=== PATIENT | female | born 1925 | race Caucasian/White ===

== ENCOUNTER 2016-07-24 13:50 | Inpatient (IN) | payer MEDICARE ==
--- NOTE | ~2016-07-24 | DS ---
Unit #: [id number] #: [id number] Patient: JULIA ARREAGA [id number] [address] [place], [place] [address] [id number] I MR#: [id number] NAME: JULIA ARREAGA. ROOM: 570 Age: 89 Sex: F Admission Date: 07/24/2016 : 1925 Discharge Date: 07/30/2016 Attending Physician: Clifton Grady M.D. Primary Care Physician: Byron Newell M.D. DISCHARGE SUMMARY DISCHARGE DIAGNOSES 1. New onset atrial flutter with rapid ventricular rate of unknown duration. 2. Acute on chronic diastolic heart failure. 3. Left ventricular ejection fraction 60% to 65%. 4. Left lower extremity cellulitis. 5. Obesity. 6. Dementia. 7. Hyperlipidemia. DISCHARGE MEDICATIONS 1. Amiodarone 200 mg daily. 2. Tylenol 650 q.4 p.r.n. pain. 3. Clobetasol 15 gram cream topically with equal amount of Bactroban 22 gram topical b.i.d. from ankles to knees. 4. Coumadin 5 mg Sunday, Sunday, Sunday, , Sunday with goal INR of 2 to 3. Hold if INR is greater than 3. 5. Risperdal 0.25 mg at bedtime. 6. Metoprolol tartrate 12.5 mg b.i.d. 7. Stool softener of choice daily p.r.n. constipation. 8. Aspirin 81 mg daily. 9. Kefzol 500 mg t.i.d. for 5 days. HISTORY AND HOSPITAL COURSE The patient is an 89-year-old white female, previously known to us for syncope in March of 2015, for which she refused a stress test. Echocardiogram at that time showed ejection fraction of 60% to 65% with mild TR. She also had acute delirium with underlying dementia and vitamin B12 deficiency. She does not follow up with a ticket seller and has not had any ischemic workup in the past. She is a very poor historian due to her dementia. She was noted to be in atrial fibrillation with rapid ventricular response. The patient was started on rate lowering agents with beta-blockers, and diltiazem drip was weaned off due to hypotension. The patient was started on Lovenox for anticoagulation and then transitioned to "Cardizem" for a [id number] score of 3. It was noted that the patient had bilateral lower extremity redness and tenderness and was started on Ancef IV q.8 hours. The patient was also seen by the hospitalists for medical management. Her heart rate has been controlled. She has been somewhat weak, and she is going to go to rehab today. DISCHARGE INSTRUCTIONS 1. The patient is to have a PT-INR done on Sunday with goal INR of 2-3. 2. She is to follow up with her primary care doctor after rehab. Unit #: [id number] #: [id number] Patient: JULIA ARREAGA 3. She is to follow up with Dr. Fallon in 4-6 weeks and to call [phone] for appointment. 4. Her Keflex is to be 500 mg t.i.d. for 5 more days. Dictated by... Perlita Grady APRN for Christine Painter/payton TD: 07/30/2016 15:03 JOB #: [id number] DISCHARGE SUMMARY Page 1 of 1 X X DISCHARGE SUMMARY
--- NOTE | ~2016-07-24 | EKG ---
PATIENT: JULIA ARREAGA UNIT #: [id number] Ventricular Rate: 75 BPM Atrial Rate: 300 BPM QRS Duration: 82 ms Q-T Interval: 356 ms QTC Calculation(Bezet): 397 ms P [place]: 105 degrees Calculated R [place]: 2 degrees Calculated T [place]: -16 degrees Diagnosis Line: Atrial flutter with variable A-V block Diagnosis Line: Nonspecific ST and T wave abnormality Diagnosis Line: Abnormal ECG Diagnosis Line: When compared with ECG of 24-JUL-2016 12:22, Diagnosis Line: Vent. rate has decreased BY 49 BPM Diagnosis Line: Confirmed by RG KELLOGG MD ([id number]) on 07/25/2016 Diagnosis Line: 10:33:05 PM INTERPRETING MD: BESS LOCO
--- NOTE | ~2016-07-24 | HP ---
Unit #: [id number] #: [id number] Patient: JULIA ARREAGA [id number] [address] [place], [place] [address] [id number] I MR#: [id number] NAME: JULIA ARREAGA. ROOM: 570 Age: 89 Sex: F Admission Date: 07/24/2016 : 1925 Attending Physician: Clifton Grady M.D. Primary Care Physician: Byron Newell M.D. HISTORY AND PHYSICAL HISTORY OF PRESENT ILLNESS This is an 89-year-old white female previously seen by our group in March 2015 for possible syncope. She refused a Lexiscan Cardiolite stress test during that time. A 2D echocardiogram was completed and revealed a left ventricular ejection fraction of 60% to 65% with mild tricuspid regurgitation. She was found to have hyperlipidemia, as well as acute delirium with underlying dementia and vitamin B12 deficiency. The patient does not follow actively with a nursing officer. There are no reports of stress test or cardiac catheterization. She is a poor historian due to underlying dementia. Information has been obtained from her, as well as her daughter, Carine. She presented to the emergency department with complaints of swelling in her lower extremities and redness on the left lower extremity. There are no reports of fever or chills. She has had a recent headache but no loss of vision, dizziness, or syncope. There are no reports of palpitations or chest pain. She denies any PND or orthopnea. She does live in assisted living and uses a walker to ambulate. In the emergency department, her temperature was 98, pulse 150, respirations 16, blood pressure 116/53, and O2 saturation 96% on room air. Initial EKG revealed atrial flutter with a rapid ventricular response. She was started on a Cardizem bolus, followed by a Cardizem drip. Cardiology was asked to evaluate the patient due to atrial flutter. According to the patient and her daughter, she has no history of atrial arrhythmias. She has never been told that she needed long-term anticoagulation. She is on no home medications. PAST MEDICAL HISTORY 1. Previous admission to [facility] March 2015 for possible syncope, acute delirium with underlying dementia, and vitamin B12 deficiency. 2. Refused Lexiscan Cardiolite stress test in March 2015. 3. A 2D echocardiogram on April 24, 2015, revealed a left ventricular ejection fraction of 60% to 65% and mild tricuspid regurgitation. Right ventricular systolic pressure was normal. 4. Hyperlipidemia. 5. Nonsmoker. PAST SURGICAL HISTORY 1. Tonsillectomy. 2. Appendectomy. 3. Left knee replacement. Unit #: [id number] #: [id number] Patient: JULIA ARREAGA 4. Right hip replacement. HOME MEDICATIONS None. ALLERGIES No known drug allergies. SOCIAL HISTORY The patient lives in assisted living. She is a nonsmoker. There are no reports of alcohol or illicit drug use. She ambulates with a walker. She reports that she recently fell on her knee while trying to get out of the car. She denies any other falls. FAMILY HISTORY Noncontributory due to age. REVIEW OF SYSTEMS A 10-point review of systems is negative except for details noted above in History of Present Illness. PHYSICAL EXAMINATION VITAL SIGNS: Temperature 98, pulse 139, and blood pressure 106/91. CONSTITUTIONAL: This is an 89-year-old white female in no acute distress. SKIN: Warm and dry. NECK: Supple. No jugular vein distention. No hepatojugular reflux. Normal carotid upstrokes. No carotid bruits auscultated. HEART: S1 and S2. Tachycardic. No murmurs, rubs, or gallops. LUNGS: Bilateral breath sounds have good air entry throughout all lung shay. Respirations even and nonlabored. No rales, rhonchi, or wheezes. ABDOMEN: Obese, soft, nontender, and nondistended. Positive bowel sounds auscultated x4 quadrants. No ascites noted. EXTREMITIES: Bilateral lower extremities have 2+ pitting edema. Left lower extremity red and weeping. Abrasion noted on the left knee. DP and PT pulses 1+. Capillary refill less than 3 seconds. DIAGNOSTIC STUDIES LABORATORY: White blood cell count 8.8, hemoglobin 12.6, hematocrit 38, and platelets 268,000. Sodium 141, potassium 3.5, chloride 106, CO2 of 24, BUN 19, creatinine 1.1, glucose 85, AST 19, ALT 13, and alkaline phosphatase 83. BNP 219. INR 0.9. Troponin 0.05 and 0.05. Blood cultures pending. IMAGING: Chest x-ray reveals mild chronic scarring in the left lung base. CARDIOLOGY: EKG reveals atrial flutter with a ventricular rate of 124 beats per minute, nonspecific ST and T wave changes, and QTc of 428 msec. IMPRESSION 1. Atrial flutter with rapid ventricular response, age undetermined. 2. Mild volume overload. 3. Left ventricular ejection fraction of 60% to 65%. 4. Borderline hypotension while on diltiazem drip. 5. Left lower extremity cellulitis. 6. Dementia. 7. Hyperlipidemia. PLAN Unit #: [id number] #: [id number] Patient: JULIA ARREAGA 1. The patient presented to the hospital with complaints of swelling in the legs with redness. Initial EKG revealed atrial flutter with a rapid ventricular response. Cardiology was consulted for further management. 2. Patient's diltiazem drip will be discontinued due to borderline hypotension. 3. She will be started on digoxin as renal function is normal. Will initiate low-dose metoprolol at 12.5 mg p.o. b.i.d. with parameters. 4. The patient has cellulitis of the left lower extremity. She will be started on Ancef IV q.8 hours. 5. Will consult the wound care nurse for further management, as well as the hospitalist. 6. Patient has some mild overload with bilateral lower extremity edema. She will be given one dose of IV Lasix. 7. The patient has a CHADS2-VASc score of 3 due to gender and age. She will be started on Lovenox for now. Will need to discuss if she is a candidate for long-term anticoagulation as she is older in age and did suffer a recent fall. 8. The patient had a recent echocardiogram in March 2015 which revealed a normal EF and mild tricuspid regurgitation. There is no need to repeat the (1) at this time. 9. The patient is a Full Code status but will provide Living Will papers. 1. Dictated by Khushi Taylor APRN for Christine Hawthorne TD: 07/25/2016 20:20 JOB #: [id number] HISTORY AND PHYSICAL Page 1 of 1 X X HISTORY AND PHYSICAL
--- NOTE | ~2016-07-24 | CR72 ---
[facility] A Service of [facility] RADIOLOGY TEXT RESULTS PATIENT: JULIA ARREAGA LOCATION: [facility] : [birth year] UNIT #: [id number] AGE: [address]: Clifton Grady MD SEX: F ORDER DR: [id number] [facility] [address] [place], [place] [address] [id number] E MR#: [id number] Acc #: [id number] NAME: JULIA ARREAGA. : 1925 SEX: F STUDY DATE/TIME: 07/24/2016 12:37 UNIT: [facility] ROOM: STUDY DESCRIPTION: CR Chest Single View Portable Attending Physician: Brett Byrne M.D. Ordering Physician: Brett Byrne M.D. Primary Care Physician: Byron Newell M.D. MEDICAL IMAGING REPORT This report is preliminary unless electronic signature is present EXAM Portable chest. INDICATION Shortness of breath. Bilateral lower extremity edema and swelling for 2 weeks. FINDINGS Comparison made to a prior study from April 24, 2015. Heart size is within normal limits for portable technique. No acute infiltrates are identified. There is no pneumothorax or pleural effusion. I do think the patient has some mild chronic scarring at the left lung base. Dictated by... Lisa Stockton M.D. THIS IS AN ELECTRONICALLY VERIFIED REPORT Lisa Stockton M.D. at 07/24/2016 4:45 PM AFF/tmw TD: 07/24/2016 14:53 JOB #: [id number] MEDICAL IMAGING REPORT Page 1 of 1 COPY
--- NOTE | ~2016-07-24 | US84 ---
[id number] [facility]. [facility] [address] [place], [place] [address] [id number] I MR#: [id number] Acc #: [id number] NAME: JULIA ARREAGA : 1925 SEX: F STUDY DATE/TIME: 07/25/2016 10:23 UNIT: [facility] ROOM: 570 STUDY DESCRIPTION: US LE Veins Complete Jorge Stdy Attending Physician: Clifton Grady M.D. Ordering Physician: Theresa Monteiro M.D. Primary Care Physician: Byron Newell M.D. MEDICAL IMAGING REPORT This report is preliminary unless electronic signature is present EXAM Bilateral lower extremity venous duplex, 07/25/2016. HISTORY Bilateral lower extremity redness and swelling for 1 week, left greater than right. Evaluate for deep venous thrombosis. FINDINGS TECHNIQUE Venous ultrasound examination of both lower extremities was performed using grayscale, spectral Doppler and color flow Doppler imaging. FINDINGS The examination is negative. There is no evidence of deep venous thrombus from the groin to the lower calf bilaterally. Visualized greater saphenous veins are also patent. IMPRESSION Negative examination. No evidence of lower extremity deep venous thrombosis. Dictated by... Julio Salgado M.D. THIS IS AN ELECTRONICALLY VERIFIED REPORT Julio Salgado M.D. at 07/26/2016 8:20 AM MARVA/ursula TD: 07/25/2016 13:11 JOB #: [id number] MEDICAL IMAGING REPORT Page 1 of 1 COPY
--- NOTE | ~2016-07-24 | EKG ---
PATIENT: JULIA ARREAGA UNIT #: [id number] Ventricular Rate: 124 BPM Atrial Rate: 300 BPM QRS Duration: 80 ms Q-T Interval: 298 ms QTC Calculation(Bezet): 428 ms Calculated R [place]: -3 degrees Calculated T [place]: -9 degrees Diagnosis Line: Atrial flutter with variable A-V block Diagnosis Line: Nonspecific ST and T wave abnormality Diagnosis Line: Abnormal ECG Diagnosis Line: When compared with ECG of 24-APR-2015 06:02, Diagnosis Line: Atrial flutter has replaced Sinus rhythm Diagnosis Line: Vent. rate has increased BY 67 BPM Diagnosis Line: Nonspecific T wave abnormality now evident in Diagnosis Line: Lateral leads Diagnosis Line: Confirmed by NEGAR GUTIERREZ MD ([id number]) on 07/24/2016 Diagnosis Line: 11:06:13 PM INTERPRETING MD: MATT LOCO
--- NOTE | ~2016-07-24 | EKG ---
PATIENT: JULIA ARREAGA UNIT #: [id number] Ventricular Rate: 73 BPM Atrial Rate: 73 BPM P-R Interval: 222 ms QRS Duration: 86 ms Q-T Interval: 412 ms QTC Calculation(Bezet): 453 ms P [place]: 84 degrees Calculated R [place]: 10 degrees Calculated T [place]: 38 degrees Diagnosis Line: Sinus rhythm with 1st degree A-V block Diagnosis Line: Low voltage QRS Diagnosis Line: Borderline ECG Diagnosis Line: When compared with ECG of 25-JUL-2016 08:18, Diagnosis Line: Sinus rhythm has replaced Atrial flutter Diagnosis Line: Nonspecific T wave abnormality, improved in Diagnosis Line: Anterior leads Diagnosis Line: Confirmed by RAGHAV BARNETT MD ([id number]) on Diagnosis Line: 07/30/2016 2:07:16 PM INTERPRETING MD: KATHY
--- NOTE | ~2016-07-24 | CO ---
Unit #: [id number] #: [id number] Patient: JULIA ARREAGA [id number] [facility] [address] [place], [place] [address] [id number] I MR#: [id number] NAME: JULIA ARREAGA. ROOM: 570 Age: 89 Sex: F Admission Date: 07/24/2016 : 1925 Attending Physician: Clifton Grady M.D. Primary Care Physician: Byron Newell M.D. Consultation Date: 07/24/2016 CONSULTATION REPORT REFERRING PHYSICIAN [facility] Cardiology. HISTORY This pleasant 89-year-old female with B12 deficiency, dementia, hyperlipidemia, was admitted to the cardiology service for new onset atrial fibrillation. Unfortunately patient is a very poor historian and the family is not present. She was brought to this emergency department for palpitations and bilateral lower extremity edema. She was found in the ER to have new onset afib with RVR. She was started on a Cardizem drip, and seen by Dr. Fallon who has since transitioned the patient to low dose Lopressor, and Pradaxa. We were asked to see for medical management. Patient denies any issues; in fact, she is upset about being in the hospital and does not really know where she is. She does have an abrasion over her left knee and does admit to falling on her left knee recently. Her exam is notable for bilateral lower extremity erythema, more so on the left than the right, and lower extremity edema, left more so than the right. PAST MEDICAL HISTORY 1. Admission 03/2015 for syncope, chest pain, delirium. The patient was found to have significant B12 deficiency. Of note her TSH was elevated. I believe that she had refused stress test at that time. 2. Dementia. 3. Hyperlipidemia. 4. B12 deficiency. 5. Appendectomy. 6. Left knee surgery. 7. Right hip replacement. 8. Tonsillectomy. 9. Left cataract extraction. ALLERGIES No known drug allergies. HOME MEDICATIONS None. FAMILY HISTORY Family history is noncontributory given the patient's age. Unit #: [id number] #: [id number] Patient: JULIA ARREAGA SOCIAL HISTORY The patient states that she lives with family although per the ER sheet she may be living at [facility]. She is a lifelong nonsmoker, does not drink alcohol. REVIEW OF SYSTEMS Impossible to obtain due to patient's dementia. PHYSICAL EXAMINATION GENERAL: Pleasantly confused, 89-year-old moderately obese female who currently is in no acute distress. VITAL SIGNS: Temperature 98. Pulse was initially 150 and now is 82. Respirations 16. Blood pressure 116/53. O2 saturation 96% on room air. HEENT: Eyes PERRLA. Extraocular muscles are intact. Status post left cataract extraction. Pharynx is benign. NECK: Supple, without adenopathy or thyromegaly. CHEST: Clear. CARDIAC: Normal S1 and S2, without definite murmur. ABDOMEN: Bowel sounds are present. No hepatosplenomegaly, tenderness or masses. EXTREMITIES: Notable for bilateral lower extremity edema left more so than the right. Pedal pulses are present although somewhat diminished. There is erythema over the distal lower extremities, left more so than right. Negative Homans sign. Abrasion over the left knee. NEUROLOGIC EXAM: Patient is oriented to person only. She is quite tangential and confused. Her cranial nerves are intact. She has equal strength throughout. DIAGNOSTIC STUDIES LABORATORY: Hematocrit is 38, normal white count, platelet count and MCV. Coags are normal. SMA-12 normal. BNP 219. Cardiac markers are negative. IMAGING: Chest x-ray no acute disease. Some scarring noted at the left base. CARDIOVASCULAR: EKG showed afib, RVR, rate about 125. ASSESSMENT 1. New diagnosis of atrial fibrillation with rapid ventricular response. Apparently patient did have an echocardiogram in 2014 showing normal ejection fraction with mild tricuspid regurgitation. 2. Dementia. 3. Venostasis dermatitis of the lower extremities with likely superimposed left distal leg cellulitis. 4. Abrasion over the left knee. 5. B12 deficiency. PLANS 1. Agree with IV Ancef. Will add Bactroban ointment to her left knee, check venous Dopplers of the legs. 2. Start IM B12 injections. 3. Check urinalysis. 4. Thyroid function tests have been ordered by Cardiology. Thank you very much for this consult. Will follow with you. Unit #: [id number] #: [id number] Patient: JULIA ARREAGA Dictated by... Theresa Monteiro M.D. AML/cf TD: 07/24/2016 21:37 JOB #: [id number] CC: Shravan Fallon M.D. CONSULTATION REPORT Page 1 of 1 X Theresa Monteiro MD CONSULTATION REPORT
[2016-07-24 12:53] LABS: POC - CKMB 2.6 ng/mL (0.0-7.9); POC - TROPONIN <0.05 ng/mL (<=0.05)
[2016-07-24 12:59] LABS: BASOPHIL% 0.5 % (0-2.5); DIFF IND NO; EOSINOPHIL# 0.2 X10e3 (0-0.7); EOSINOPHIL% 2.3 % (0.0-7.0); HEMOGLOBIN 12.6 gm/dL (12.0-16.0); LYMPHOCYTE# 2.1 X10e3 (1.0-3.5); LYMPHOCYTE% 23.6 % (17.0-45.0); MEAN CELL VOLUME 89.8 FL (83-96); MEAN CORPUSCULAR HEMOGLOBIN 29.7 PG (28-34); MEAN PLATELET VOLUME 8.1 FL (6.5-11.5); MONOCYTE# 0.9 X10e3 (0-1.0); MONOCYTE% 10.6 % (3.0-12.0); NEUTROPHIL# 5.6 X10e3 (1.5-7.1); PLATELET COUNT 268 X10e3 (140-420); RED BLOOD COUNT 4.23 X10e (3.90-5.30); RED CELL DISTRIBUTION WIDTH 13.7 % (11.0-15.5); WHITE BLOOD COUNT 8.8 X10e3 (4.0-10.5)
[2016-07-24 13:14] LABS: INR 0.9; PARTIAL THROMBOPLASTIN TIME 26.8 SECONDS (23.5-31.3)
[2016-07-24 13:46] LABS: BILIRUBIN, DIRECT 0.1 mg/dL (0.0-0.2); BILIRUBIN,INDIRECT 0.6 mg/dL (0.0-0.9); BILIRUBIN,TOTAL 0.7 mg/dL (0.2-2.0); BUN/CREATININE RATIO 17.27; CREATININE SERUM 1.1 mg/dL (0.6-1.4); GLOM FILT RATE Estimated 44.5 mL/min (>60); POTASSIUM 3.5 mmol/L (3.5-5.1); PROTEIN TOTAL SERUM 7.6 g/dL (6.0-8.3)
[~2016-07-24 13:50] MED LIST: CYANOCOBAL1000 MCG/M SUBQ; NO MEDICATIONS; [UNRECOGNIZED DRUG - OTHER]; [UNRECOGNIZED DRUG - OTHER]
[2016-07-24 14:34] LABS: POC - CKMB 1.2 ng/mL (0.0-7.9); POC - TROPONIN <0.05 ng/mL (<=0.05)
[2016-07-25 02:12] LABS: URINE SOURCE CATH
[2016-07-25 02:20] LABS: URINE APPEARANCE CLEAR; URINE BILIRUBIN NEG (NEG); URINE BLOOD NEG (NEG); URINE COLOR YELLOW; URINE GLUCOSE NEG (NEG); URINE KETONE NEG (NEG); URINE LEUKOCYTE ESTERASE TRACE (NEG); URINE NITRATE NEG (NEG); URINE PROTEIN NEG (NEG); URINE SPECIFIC GRAVITY 1.008 (1.003-1.035); URINE UROBILINOGEN 0.2 MG/DL (NEG)
[2016-07-25 02:23] LABS: URBCS1 AUWI 0-2 /[HPF] (0-2); URINE BACTERIA AUWI NEG (NEGATIVE); URINE SQUAMOUS EPITHELIAL CELL NONE SEEN /[HPF]
[2016-07-25 02:25] LABS: CULTURE INDICATED? NO
[2016-07-25 06:58] LABS: HEMATOCRIT 32.5 % (35.0-45.0); HEMOGLOBIN 10.8 gm/dL (12.0-16.0); MEAN CELL VOLUME 88.9 FL (83-96); MEAN CORPUSCULAR HEMOGLOBIN 29.6 PG (28-34); MEAN CORPUSCULAR HGB CONC 33.3 g/dL (30-36); MEAN PLATELET VOLUME 7.9 FL (6.5-11.5); RED BLOOD COUNT 3.66 X10e (3.90-5.30); RED CELL DISTRIBUTION WIDTH 13.7 % (11.0-15.5); WHITE BLOOD COUNT 8.3 X10e3 (4.0-10.5)
[2016-07-25 07:45] LABS: CALCIUM SERUM 9.4 mg/dL (8.4-10.2); GLOM FILT RATE Estimated 49.9 mL/min (>60); MAGNESIUM 1.7 mg/dL (1.6-3.0); POTASSIUM 3.5 mmol/L (3.5-5.1)
[2016-07-26 06:24] LABS: HEMATOCRIT 33.9 % (35.0-45.0); MEAN CELL VOLUME 91.6 FL (83-96); MEAN CORPUSCULAR HEMOGLOBIN 29.7 PG (28-34); MEAN CORPUSCULAR HGB CONC 32.4 g/dL (30-36); MEAN PLATELET VOLUME 8.3 FL (6.5-11.5); RED BLOOD COUNT 3.7 X10e (3.90-5.30); WHITE BLOOD COUNT 8.4 X10e3 (4.0-10.5)
[2016-07-26 07:06] LABS: FREE T3 2.5 pg/mL (2.5-3.9)
[2016-07-26 07:07] LABS: FREE THYROXIN (T4) 0.87 ng/dL (0.58-1.64)
[2016-07-26 07:18] LABS: ALBUMIN SERUM 3.1 g/dL (3.5-5.0); BILIRUBIN,TOTAL 0.5 mg/dL (0.2-2.0); BUN/CREATININE RATIO 14.44; CALCIUM SERUM 9.4 mg/dL (8.4-10.2); CREATININE SERUM 0.9 mg/dL (0.6-1.4); GLOM FILT RATE Estimated 56.7 mL/min (>60); MAGNESIUM 1.8 mg/dL (1.6-3.0); POTASSIUM 4.2 mmol/L (3.5-5.1); PROTEIN TOTAL SERUM 6.1 g/dL (6.0-8.3)
[2016-07-27 07:46] LABS: INR 1.1; PROTHROMBIN TIME (PATIENT) 11.9 SECONDS (9.6-11.5)
[2016-07-28 10:48] LABS: HEMATOCRIT 31.8 % (35.0-45.0); HEMOGLOBIN 10.8 gm/dL (12.0-16.0); MEAN CORPUSCULAR HEMOGLOBIN 29.8 PG (28-34); MEAN CORPUSCULAR HGB CONC 33.9 g/dL (30-36); MEAN PLATELET VOLUME 7.3 FL (6.5-11.5); RED BLOOD COUNT 3.61 X10e (3.90-5.30); RED CELL DISTRIBUTION WIDTH 13.6 % (11.0-15.5); WHITE BLOOD COUNT 7.7 X10e3 (4.0-10.5)
[2016-07-28 11:00] LABS: INR 1.3; PROTHROMBIN TIME (PATIENT) 13.5 SECONDS (9.6-11.5)
[2016-07-28 11:44] LABS: BUN/CREATININE RATIO 16.25; CALCIUM SERUM 9.4 mg/dL (8.4-10.2); CREATININE SERUM 0.8 mg/dL (0.6-1.4); GLOM FILT RATE Estimated 65.4 mL/min (>60); MAGNESIUM 1.9 mg/dL (1.6-3.0); POTASSIUM 3.7 mmol/L (3.5-5.1)
[2016-07-28 21:09] LABS: INR 1.6; PROTHROMBIN TIME (PATIENT) 16.7 SECONDS (9.6-11.5)
[2016-07-29 11:03] LABS: HEMOGLOBIN 10.9 gm/dL (12.0-16.0); MEAN CELL VOLUME 89.5 FL (83-96); MEAN CORPUSCULAR HEMOGLOBIN 29.5 PG (28-34); MEAN CORPUSCULAR HGB CONC 32.9 g/dL (30-36); MEAN PLATELET VOLUME 7.5 FL (6.5-11.5); RED BLOOD COUNT 3.69 X10e (3.90-5.30); RED CELL DISTRIBUTION WIDTH 13.5 % (11.0-15.5); WHITE BLOOD COUNT 7.1 X10e3 (4.0-10.5)
[2016-07-29 11:19] LABS: INR 2.3; PROTHROMBIN TIME (PATIENT) 24.9 SECONDS (9.6-11.5)
[2016-07-29 11:27] LABS: CALCIUM SERUM 9.7 mg/dL (8.4-10.2); CREATININE SERUM 0.8 mg/dL (0.6-1.4); GLOM FILT RATE Estimated 65.4 mL/min (>60)
[2016-07-30 07:53] LABS: HEMATOCRIT 31.2 % (35.0-45.0); HEMOGLOBIN 10.3 gm/dL (12.0-16.0); MEAN CELL VOLUME 89.2 FL (83-96); MEAN CORPUSCULAR HEMOGLOBIN 29.4 PG (28-34); MEAN PLATELET VOLUME 7.5 FL (6.5-11.5); RED BLOOD COUNT 3.5 X10e (3.90-5.30); RED CELL DISTRIBUTION WIDTH 13.6 % (11.0-15.5); WHITE BLOOD COUNT 6.4 X10e3 (4.0-10.5)
[2016-07-30 08:11] LABS: INR 2.4; PROTHROMBIN TIME (PATIENT) 25.7 SECONDS (9.6-11.5)
[2016-07-30 08:21] LABS: BUN/CREATININE RATIO 18.75; CALCIUM SERUM 9.8 mg/dL (8.4-10.2); CREATININE SERUM 0.8 mg/dL (0.6-1.4); GLOM FILT RATE Estimated 65.4 mL/min (>60); POTASSIUM 4.1 mmol/L (3.5-5.1)
== END 2016-07-30 17:19 | DRG 308 ==
LOC: CED 13:50 → CEDOF 15:00 → C5C 20:22
PROVIDERS: Emergency Medicine; Internal Medicine; Nurse Practitioner; Nurse Practitioner Family
PROC: 3E0234Z Introduction of Serum, Toxoid and Vaccine into Muscle, Percutaneous Approach (ICD-10-PCS; principal; 2016-07-26)
DX: I48.92 Unspecified atrial flutter (principal); I50.33 Acute on chronic diastolic (congestive) heart failure; L03.116 Cellulitis of left lower limb; I95.9 Hypotension, unspecified; I36.1 Nonrheumatic tricuspid (valve) insufficiency; F03.90 Unspecified dementia, unspecified severity, without behavioral disturbance, psychotic disturbance, mood disturbance, and anxiety; E78.5 Hyperlipidemia, unspecified; Z96.652 Presence of left artificial knee joint; Z96.641 Presence of right artificial hip joint; E53.8 Deficiency of other specified B group vitamins; Z98.42 Cataract extraction status, left eye; I48.91 Unspecified atrial fibrillation; I87.2 Venous insufficiency (chronic) (peripheral); S80.212A Abrasion, left knee, initial encounter; F02.80 Dementia in other diseases classified elsewhere, unspecified severity, without behavioral disturbance, psychotic disturbance, mood disturbance, and anxiety; I47.1 Supraventricular tachycardia; R32 Unspecified urinary incontinence; Z23 Encounter for immunization; Z68.34 Body mass index [BMI] 34.0-34.9, adult
CPT/HCPCS: 36415; 71010; 80048; 80053; 80061; 80076; 81003; 82553; 83605; 83735; 83880; 84439; 84443; 84481; 84484; 85025; 85027; 85610; 85730; 87040; 90688; 90732; 93005; 93970; 94760; 96365; 96366; 96375; 97110; 97116; 97163; 97166; 97530; 97535; 99291; G0009; G8978-GP; G8979-GP; G8987-GO; G8988-GO; J0690; J1160; J1650; J1940; J3420

== ENCOUNTER 2016-11-06 09:50 | Emergency (ER) | payer MEDICARE ==
--- NOTE | ~2016-11-06 | CR172 ---
[facility] A Service of [facility] RADIOLOGY TEXT RESULTS PATIENT: JULIA ARREAGA LOCATION: [facility] : [birth year] UNIT #: [id number] AGE: [address]: Jenna Pruitt SEX: F ORDER DR: [id number] [facility] [address] [facility]. [place], [place] [address] [id number] E MR#: [id number] Acc #: [id number] NAME: JULIA ARREAGA. : 1925 SEX: F STUDY DATE/TIME: UNIT: [facility] ROOM: STUDY DESCRIPTION: CR Knee 3 Views Lt Attending Physician: Jenna Pruitt Pa-C Ordering Physician: Ed Doc Christine Garibay Primary Care Physician: Byron Newell M.D. MEDICAL IMAGING REPORT This report is preliminary unless electronic signature is present EXAM Left knee 3 views 11/06/2016 1045 hours HISTORY 89-year-old woman who fell last night with bilateral knee pain and abrasions. COMPARISON None FINDINGS AP, lateral and sunrise views are performed portably. There is no definite knee joint effusion or fracture. The patient is postop total knee replacement with anatomic alignment. IMPRESSION No knee joint effusion or fracture. There is postop change of total knee replacement without hardware failure. There is mild superficial edema with no foreign body seen. Dictated by... Liz Luis M.D. THIS IS AN ELECTRONICALLY VERIFIED REPORT Liz Luis M.D. at 11/07/2016 9:29 AM MARCO/kim TD: 11/06/2016 15:55 JOB #: [id number] MEDICAL IMAGING REPORT Page 1 of 1 COPY
--- NOTE | ~2016-11-06 | CT71 ---
[facility] A Service [facility] RADIOLOGY TEXT RESULTS PATIENT: JULIA ARREAGA LOCATION: [facility] : [birth year] UNIT #: [id number] AGE: [address]: Jenna Pruitt SEX: F ORDER DR: [id number] [place] [id number] [facility] [place], [place] [address] [id number] E MR#: [id number] Acc #: [id number] NAME: JULIA ARREAGA. : 1925 SEX: F STUDY DATE/TIME: 11/06/2016 11:19 UNIT: [facility] ROOM: STUDY DESCRIPTION: CT Head Wo Contrast Attending Physician: Jenna Pruitt Pa-C Ordering Physician: Gume Garibay M.D. Primary Care Physician: Byron Newell M.D. MEDICAL IMAGING REPORT This report is preliminary unless electronic signature is present EXAM CT head without contrast 11/06/2016 HISTORY 89-year-old female with head pain status post fall at home this morning. COMPARISON CT head 04/24/2015 TECHNIQUE Routine unenhanced axial images performed through the brain. This CT exam was performed with one or more of the following radiation dose reduction techniques: automatic exposure control, adjustment of mA and/or kV according to patient size, and iterative reconstruction. FINDINGS No hemorrhage, acute infarction, mass lesion, or abnormal extraaxial fluid collection. No midline shift or focal mass effect. Ventricular system is normal in size and configuration. Moderate generalized atrophy and chronic small vessel disease is unchanged from the prior exam. No acute bony abnormality. Mucosal thickening in the left frontal sinus and bilateral ethmoid air cells. Visualized mastoid air cells are clear. IMPRESSION 1. No acute intracranial abnormality. 2. Moderate age-related atrophy and chronic small vessel disease, unchanged. 3. Mild mucosal thickening, left frontal sinus and bilateral ethmoid air cells. Dictated by... Earl Steele M.D. [facility] A Service [facility] RADIOLOGY TEXT RESULTS PATIENT: JULIA ARREAGA LOCATION: [facility] : [birth year] UNIT #: [id number] AGE: [address]: Jenna Pruitt SEX: F ORDER DR: THIS IS AN ELECTRONICALLY VERIFIED REPORT Earl Steele M.D. at 11/08/2016 10:41 AM Rodney TD: 11/06/2016 16:58 JOB #: [id number] MEDICAL IMAGING REPORT Page 1 of 1 COPY
--- NOTE | ~2016-11-06 | CT52 ---
[facility] A Service of [facility] RADIOLOGY TEXT RESULTS PATIENT: JULIA ARREAGA LOCATION: [facility] : [birth year] UNIT #: [id number] AGE: [address]: Jenna Pruitt SEX: F ORDER DR: [id number] [id number] [facility]. [place], [place] [address] [id number] E MR#: [id number] #: [id number] NAME: JULIA ARREAGA. : 1925 SEX: F STUDY DATE/TIME: UNIT: [facility] ROOM: STUDY DESCRIPTION: CT Cervical Spine Wo Cont Attending Physician: Jenna Pruitt Pa-C Ordering Physician: Ed Frank Garibay M.D. Primary Care Physician: Byron Newell M.D. MEDICAL IMAGING REPORT This report is preliminary unless electronic signature is present EXAM Cervical spine CT without contrast 11/06/2016 1119 hours HISTORY 89-year-old woman who fell at home this morning. The patient hit head on floor with head pain today. Neck tenderness on physical exam today. COMPARISON None TECHNIQUE Thin cut axial images were obtained from the skull base through the upper thoracic spine without contrast. Sagittal and coronal reconstructions were performed. No contrast was administered. Total exam DLP 1290 mGy - cm. This CT exam was performed with one or more of the following radiation dose reduction techniques: automatic exposure control, adjustment of mA and/or kV according to patient size, and iterative reconstruction. FINDINGS Limited views through the posterior fossa demonstrate no intracranial hemorrhage. The mastoid air cells appear clear. There is no skull base fracture. Atherosclerotic calcifications are present. C1-2 demonstrates spurring at the articulation between the dens on the ring of C1. There is no dens fracture seen. The sagittal reconstructed images demonstrate reversal of the normal cervical lordosis with a few millimeters of anterolisthesis of C3 on 4 and retrolisthesis of C5 on 6. There is severe multilevel degenerative disc disease and facet degenerative change resulting in this alignment. There is severe degenerative disc disease C5-6 and C6-7. [facility] A Service of [facility] RADIOLOGY TEXT RESULTS PATIENT: JULIA ARREAGA LOCATION: [facility] #: [id number] : [birth year] UNIT #: [id number] AGE: [address]: Jenna Pruitt SEX: F ORDER DR: C2-3 demonstrates right greater than left facet hypertrophy with bony foraminal compromise on the right. C3-4 demonstrates uncovertebral spurring and bilateral facet hypertrophy resulting in right greater than left bony foraminal narrowing. C4-5 demonstrates left greater than right facet hypertrophy resulting in left greater than right foraminal narrowing. C5-6 demonstrates posterior uncovertebral spurring, facet hypertrophy resulting in central canal stenosis, bilateral lateral recess narrowing and bilateral foraminal narrowing, all chronic. C6-7 demonstrates broad-based disc osteophyte complex with facet hypertrophy resulting in mild central canal stenosis and bilateral foraminal narrowing. C7-T1 demonstrates facet hypertrophy. There is no central canal or foraminal narrowing. IMPRESSION There is no acute fracture or subluxation. There is multilevel degenerative disc disease and facet arthropathy resulting in multilevel canal stenosis and multilevel foraminal narrowing as described above. These are chronic changes. This results in reversal of the normal cervical lordosis and a few millimeters of anterolisthesis of C3 on 4 and a few millimeters of retrolisthesis of C5 on 6 all felt likely chronic. Dictated by... Liz Luis M.D. THIS IS AN ELECTRONICALLY VERIFIED REPORT Liz Luis M.D. at 11/07/2016 9:29 AM MARCO/kim TD: 11/06/2016 16:35 JOB #: [id number] MEDICAL IMAGING REPORT Page 1 of 1 COPY
--- NOTE | ~2016-11-06 | CR173 ---
[facility] A Service of [facility] RADIOLOGY TEXT RESULTS PATIENT: JULIA ARREAGA LOCATION: [facility] : [birth year] UNIT #: [id number] AGE: [address]: Jenna Pruitt SEX: F ORDER DR: [id number] [facility] [address] [facility] [place], [place] [address] [id number] E MR#: [id number] Acc #: [id number] NAME: JULIA ARREAGA. : 1925 SEX: F STUDY DATE/TIME: 11/06/2016 1050 UNIT: [facility] ROOM: STUDY DESCRIPTION: CR Knee 3 Views Rt Attending Physician: Jenna Pruitt Pa-C Ordering Physician: [facility] Primary Care Physician: Byron Newell M.D. MEDICAL IMAGING REPORT This report is preliminary unless electronic signature is present EXAM Right knee 3 views 11/06/2016 1050 hours HISTORY 89-year-old woman with history of fall last night, pain and abrasion anterior left knee COMPARISON None. FINDINGS A portable AP, cross-table lateral and sunrise views are performed. There is a small suprapatellar joint effusion without lipohemarthrosis. There is spurring in all 3 compartments with joint space loss, likely chronic osteoarthritis. No fracture seen. IMPRESSION 1. Small knee joint effusion without lipohemarthrosis or fracture. 2. There is tricompartmental joint space loss and spurring consistent with osteoarthritis. No loose body seen. Dictated by... Liz Luis M.D. THIS IS AN ELECTRONICALLY VERIFIED REPORT Liz Luis M.D. at 11/07/2016 9:29 AM Mauro TD: 11/06/2016 15:35 JOB #: [id number] MEDICAL IMAGING REPORT Page 1 of 1 COPY
--- NOTE | ~2016-11-06 | EKG ---
PATIENT: JULIA ARREAGA UNIT #: [id number] Ventricular Rate: 69 BPM Atrial Rate: 69 BPM P-R Interval: 216 ms QRS Duration: 86 ms Q-T Interval: 422 ms QTC Calculation(Bezet): 452 ms P Adak: 101 degrees Calculated R Adak: 5 degrees Calculated T Adak: 24 degrees Diagnosis Line: Sinus rhythm with 1st degree A-V block Diagnosis Line: Otherwise normal ECG Diagnosis Line: Diagnosis Line: Confirmed by ROWENA MCCONNELL MD ([id number]) on Diagnosis Line: 11/07/2016 11:10:27 AM INTERPRETING MD: JAYESH LOCO
[2016-11-06 11:15] LABS: URINE SOURCE CATH
[2016-11-06 11:30] LABS: URINE APPEARANCE CLEAR; URINE BILIRUBIN NEG (NEG); URINE BLOOD NEG (NEG); URINE COLOR YELLOW; URINE GLUCOSE NEG (NEG); URINE KETONE NEG (NEG); URINE LEUKOCYTE ESTERASE NEG (NEG); URINE NITRATE NEG (NEG); URINE PH 7.5 (5-8); URINE PROTEIN NEG (NEG); URINE SPECIFIC GRAVITY 1.009 (1.003-1.035); URINE UROBILINOGEN 0.2 MG/DL (NEG)
[2016-11-06 11:31] LABS: CULTURE INDICATED? NO
[2016-11-06 11:48] LABS: BASOPHIL% 0.6 % (0-2.5); EOSINOPHIL# 0.2 X10e3 (0-0.7); HEMATOCRIT 33.8 % (35.0-45.0); LYMPHOCYTE# 1.9 X10e3 (1.0-3.5); LYMPHOCYTE% 32.4 % (17.0-45.0); MEAN CELL VOLUME 88.5 FL (83-96); MEAN CORPUSCULAR HEMOGLOBIN 28.7 PG (28-34); MEAN CORPUSCULAR HGB CONC 32.4 g/dL (30-36); MEAN PLATELET VOLUME 7.2 FL (6.5-11.5); MONOCYTE# 0.6 X10e3 (0-1.0); MONOCYTE% 10.6 % (3.0-12.0); NEUTROPHIL# 3.1 X10e3 (1.5-7.1); NEUTROPHIL% 52.4 % (40-75); PLATELET COUNT 250 X10e3 (140-420); RED BLOOD COUNT 3.82 X10e (3.90-5.30); RED CELL DISTRIBUTION WIDTH 14.3 % (11.0-15.5); WHITE BLOOD COUNT 5.9 X10e3 (4.0-10.5)
[2016-11-06 11:51] LABS: DIFF IND NO
[2016-11-06 11:58] LABS: PARTIAL THROMBOPLASTIN TIME 26.8 SECONDS (23.5-31.3)
[2016-11-06 12:02] LABS: PROTHROMBIN TIME (PATIENT) 10.9 SECONDS (10.0-11.7)
[2016-11-06 12:06] LABS: POC - CKMB 2.4 ng/mL (0.0-7.9)
[2016-11-06 12:07] LABS: POC - TROPONIN <0.05 ng/mL (<=0.05)
[2016-11-06 12:32] LABS: CALCIUM SERUM 9.7 mg/dL (8.4-10.2); GLOM FILT RATE Estimated 49.9 mL/min (>60); POTASSIUM 3.8 mmol/L (3.5-5.1)
[2016-11-06 12:55] LABS: %MB 2.9 % (0.0-4.0); MB 3.8 ng/ml
== END 2016-11-06 14:35 | disposition home or self-care (01) ==
LOC: CED 09:50
PROVIDERS: Physician Assistant
DX: S80.212A Abrasion, left knee, initial encounter (principal); F03.90 Unspecified dementia, unspecified severity, without behavioral disturbance, psychotic disturbance, mood disturbance, and anxiety; I50.30 Unspecified diastolic (congestive) heart failure; E78.5 Hyperlipidemia, unspecified; Z79.01 Long term (current) use of anticoagulants; W18.40XA Slipping, tripping and stumbling without falling, unspecified, initial encounter; Y92.009 Unspecified place in unspecified non-institutional (private) residence as the place of occurrence of the external cause
CPT/HCPCS: 70450; 72125; 73562; 80048; 81003; 82550; 82553; 84484; 85025; 85610; 85730; 93005; 99284